=== PATIENT | male | born 1965 | race Caucasian/White ===

== ENCOUNTER 2018-08-23 12:30 | Emergency (ER) | payer OTHER ==
--- NOTE | 2018-08-23 14:20 | EDPHY ---
H & P Time Seen by Provider: 08/23/18 13:58 HPI/ROS: CHIEF COMPLAINT: Chest pain, clammy HISTORY OF PRESENT ILLNESS: The patient is a 53-year-old male with no significant past medical history presents emergency department with chest pain starting at 11:00 a.m.. Patient states he had a short. Chest pain and subsequently resolved. However, after the episode he developed clamminess and felt off. He is now asymptomatic. He has no chest pain, lightheadedness or dizziness. No shortness of breath. No recent fevers or chills. No leg pain or swelling. Patient traveled to [facility] in July. REVIEW OF SYSTEMS: 10 systems were reveiwed and are negative with the exception of the elements mentioned in the history of present illness. Past Medical/Surgical History: Negative Smoking Status: Former smoker Physical Exam: Vitals noted GENERAL: Well-appearing, in no acute distress, alert. HEENT: Eyes normal to inspection, normal pharynx, no signs of dehydration. NECK: Normal, supple. RESPIRATORY: Clear to auscultation bilaterally, no rales, rhonchi or wheezing. CVS: Regular rate and rhythm, no rubs, murmurs, or gallops. ABDOMEN: Soft, nontender, nondistended, no organomegaly. BACK: Normal to inspection, no CVA tenderness. SKIN: Normal color, no rash, warm, dry. No pallor. EXTREMITIES: No pedal edema, no calf tenderness, no Homans sign or cords, no joint swelling. NEURO/PSYCH: Alert and oriented, normal mood and affect, normal motor sensory exam. Constitutional: Initial Vital Signs Temperature (C) 36.6 C 08/23/18 12:33 Heart Rate 73 08/23/18 12:33 Respiratory Rate 18 08/23/18 12:33 Blood Pressure 187/105 H 08/23/18 12:33 O2 Sat (%) 96 08/23/18 12:33 O2 Delivery Mode Room Air Allergies/Adverse Reactions: No Known Allergies Allergy (Unverified 08/23/18 12:37) Home Medications: Medication Instructions Recorded NK [No Known Home Meds] 08/23/18 Medical Decision Making ED Course/Re-evaluation: In the emergency department I discussed possible etiologies with the patient. I answered all his questions. IV was placed. Laboratory studies, EKG and chest x-ray were obtained. Differential Diagnosis: My differential includes but is not limited to ACS, acute NE, pulmonary embolus , dissection, aneurysm, pericarditis Departure - Departure Disposition: Home, Routine, Self-Care Clinical Impression: Chest pain Qualifiers: Chest pain type: unspecified Qualified Code(s): R07.9 - Chest pain, unspecified Condition: Good Instructions: Chest Pain (ED) Additional Instructions: Return with increasing chest pain, shortness of breath or any other concerns. Referrals: [facility] [Other] - 2-3 days without fail
[2018-08-23 14:24] LABS: PLATELET COUNT 189 10^3/uL (150-400)
[2018-08-23 15:22] VITALS: BP 160/107
--- NOTE | 2018-08-24 15:18 | CPEKG ---
Test Reason : OPEN Blood Pressure : / mmHG Vent. Rate : 066 BPM Atrial Rate : 067 BPM P-R Int : 150 ms QRS Dur : 103 ms QT Int : 413 ms P-R-T Axes : 057 -21 045 degrees QTc Int : 433 ms Sinus rhythm Borderline left axis deviation Borderline ST elevation, anterior leads Confirmed by Eduardo Damon ([id number]) on 08/24/2018 3:18:31 PM Referred By: PHYSICIAN ED Confirmed By:Eduardo Damon
== END 2018-08-23 15:24 | disposition home or self-care (01) ==
DX: R07.9 Chest pain, unspecified (principal); R23.1 Pallor